=== PATIENT | female | born 1940 ===

== ENCOUNTER 2019-07-08 19:50 | Emergency (ER) | payer MEDICARE ==
--- NOTE | 2019-07-08 20:34 | Event Note ---
ED Screening Note ED Screening Note: htn with white recent med change tues pt was confused per family rx norvasc losartan water pill--since this losartan change pt has not felt well no cp no sob pcp ? pmh htn obese cva NO acs hpld prior smoker This initial assessment/diagnostic orders/clinical plan/treatment(s) is/are subject to change based on patients health status, clinical progression and re- assessment by fellow clinical providers in the ED. Further treatment and workup at subsequent clinical providers discretion. Patient/guardian urged not to elope from the ED as their condition may be serious if not clinically assessed and managed. Initial orders include: HTN Urgency/Emerg
[2019-07-08 20:53] LABS: Eosinophils # (Auto) 0.1 K/mm3 (0.0-0.4); Eosinophils % (Auto) 1.8 % (0.0-4.3); Hematocrit 34.1 % (30.3-42.9); Hemoglobin 11.5 gm/dl (10.1-14.3); Lymphocytes # (Auto) 1.2 K/mm3 (1.2-5.4); Mean Corpuscular HGB Conc 34 % (30-34); Mean Corpuscular Volume 92 fl (79-97); Monocytes # (Auto) 0.5 K/mm3 (0.0-0.8); Monocytes % (Auto) 11.6 % (0.0-7.3); Platelet Count 285 K/mm3 (140-440); Red Blood Count 3.69 M/mm3 (3.65-5.03); Red Cell Distribution Width 12.4 % (13.2-15.2)
--- NOTE | 2019-07-08 21:16 | XRay Report ---
CHEST 2 VIEWS INDICATION / CLINICAL INFORMATION: htn. COMPARISON: None available. FINDINGS: SUPPORT DEVICES: None. HEART / MEDIASTINUM: No significant abnormality. LUNGS / PLEURA: No significant pulmonary or pleural abnormality. No pneumothorax. ADDITIONAL FINDINGS: No significant additional findings. IMPRESSION: 1. No acute findings. Signer Name: Jericho Hardy MD Signed: 07/08/2019 9:12 PM Workstation Name: [id number]
[2019-07-08 21:17] LABS: Albumin 3.1 g/dL (3.9-5); Calcium 9.7 mg/dL (8.4-10.2)
[2019-07-08] MEDS ORDERED: SODIUM CHLORIDE 0.9% 1000 ML 1,000 ML IV ONE (21:52)
--- NOTE | 2019-07-08 22:23 | Emergency Department Report ---
ED General Adult HPI - General Chief complaint: High BP Stated complaint: POSS HIGH BP Time Seen by Provider: 07/08/19 20:33 Source: patient, family Mode of arrival: Ambulatory Limitations: No Limitations - History of Present Illness Initial comments: Patient is a 79-year-old female presents emergency room with complaints of elevated blood pressure. She states for the last 2 days she has had a headache and occasional blurry vision and generalized weakness. She denies any vision changes currently. She states that she just has a mild headache currently. The patient's daughter states that she took her blood pressure today and it was 207/110 at home. The patient states that 2 weeks ago she had her blood pressure medication change. She is to take losartan and amlodipine. She states that they changed her losartan to a combination of losartan and hydrochlorothiazide and she still takes amlodipine. She states since changing the medication she is not felt very well. She also has a past medical history of hyperlipidemia, CVA, breast cancer in 2015 - Related Data Previous Rx's Medication Instructions Recorded Last Taken Type Losartan [Cozaar] 25 mg PO QDAY #30 tablet 07/09/19 Unknown Rx amLODIPine 10 mg PO DAILY #30 tab 07/09/19 Unknown Rx Allergies Allergy/AdvReac Type Severity Reaction Status Date / Time Penicillins Allergy Hives Verified 07/08/19 20:38 ED Review of Systems ROS: Stated complaint: POSS HIGH BP Other details as noted in HPI Comment: All other systems reviewed and negative ED Past Medical Hx - Past Medical History Previous Medical History?: Yes Hx Hypertension: Yes Hx CVA: Yes - Surgical History Past Surgical History?: No - Social History Smoking Status: Former Smoker Substance Use Type: None - Medications Home Medications: Home Medications Medication Instructions Recorded Confirmed Last Taken Type Losartan [Cozaar] 25 mg PO QDAY #30 tablet 07/09/19 Unknown Rx amLODIPine 10 mg PO DAILY #30 tab 07/09/19 Unknown Rx ED Physical Exam - General Limitations: No Limitations General appearance: alert, in no apparent distress - Head Head exam: Present: atraumatic, normocephalic - Eye Eye exam: Present: normal appearance, PERRL, EOMI - ENT ENT exam: Present: mucous membranes moist - Respiratory Respiratory exam: Present: normal lung sounds bilaterally. Absent: respiratory distress, wheezes, rhonchi, stridor, chest wall tenderness, accessory muscle use, decreased breath sounds, prolonged expiratory - Cardiovascular Cardiovascular Exam: Present: regular rate, normal rhythm, normal heart sounds. Absent: systolic murmur, diastolic murmur, rubs, gallop - Neurological Exam Neurological exam: Present: alert, oriented X3, CN II-XII intact, normal gait, other (normal finger to nose, normal heel to samuels, no pronator drift, equal knife changer strength, 5/5 strength in the BUE/BLE, sensation intact throughout, no focal neuro deficit). Absent: motor sensory deficit - Psychiatric Psychiatric exam: Present: normal affect, normal mood - Skin Skin exam: Present: warm, dry, intact ED Course Vital Signs 07/08/19 07/08/19 07/08/19 19:59 21:27 21:28 Temperature 98.0 F Pulse Rate 104 H Respiratory 20 Rate Blood Pressure 228/106 Blood Pressure [Right] O2 Sat by Pulse 100 96 96 Oximetry 07/08/19 07/08/19 07/09/19 21:29 22:31 00:14 Temperature Pulse Rate 103 H 98 H Respiratory 15 Rate Blood Pressure 245/115 239/101 216/114 Blood Pressure [Right] O2 Sat by Pulse 99 94 Oximetry 07/09/19 07/09/19 00:37 01:18 Temperature Pulse Rate 90 85 Respiratory 18 18 Rate Blood Pressure Blood Pressure 246/76 197/80 [Right] O2 Sat by Pulse 99 99 Oximetry ED Medical Decision Making - Lab Data Result diagrams: 07/08/19 20:40 07/08/19 20:40 Lab Results 07/08/19 07/08/19 Range/Units 20:40 20:40 WBC 4.6 (4.5-11.0) K/mm3 RBC 3.69 (3.65-5.03) M/mm3 Hgb 11.5 (10.1-14.3) gm/dl Hct 34.1 (30.3-42.9) % MCV 92 (79-97) fl MCH 31 (28-32) pg MCHC 34 (30-34) % RDW 12.4 L (13.2-15.2) % Plt Count 285 (140-440) K/mm3 Lymph % (Auto) 26.0 (13.4-35.0) % Bucks % (Auto) 11.6 H (0.0-7.3) % Eos % (Auto) 1.8 (0.0-4.3) % Baso % (Auto) 1.0 (0.0-1.8) % Lymph # 1.2 (1.2-5.4) K/mm3 Bucks # 0.5 (0.0-0.8) K/mm3 Eos # 0.1 (0.0-0.4) K/mm3 Baso # 0.0 (0.0-0.1) K/mm3 Seg Neutrophils % 59.6 (40.0-70.0) % Seg Neutrophils # 2.7 (1.8-7.7) K/mm3 Sodium 139 (137-145) mmol/L Potassium 3.8 (3.6-5.0) mmol/L Chloride 98.5 (98-107) mmol/L Carbon Dioxide 24 (22-30) mmol/L Anion Gap 20 mmol/L BUN 21 H (7-17) mg/dL Creatinine 1.3 H (0.7-1.2) mg/dL Estimated GFR 40 ml/min BUN/Creatinine Ratio 16 % Glucose 92 (65-100) mg/dL Calcium 9.7 (8.4-10.2) mg/dL Total Bilirubin 0.30 (0.1-1.2) mg/dL AST 24 (5-40) units/L ALT 19 (7-56) units/L Alkaline Phosphatase 97 (35-129) units/L Troponin T 0.012 (0.00-0.029) ng/mL Total Protein 7.9 (6.3-8.2) g/dL Albumin 3.1 L (3.9-5) g/dL Albumin/Globulin Ratio 0.6 % - Radiology Data Radiology results: report reviewed CT head/brain wo con INDICATION / CLINICAL INFORMATION: headache, blurred vision, HTN. TECHNIQUE: All CT scans at this location are performed using CT dose reduction for ALARA by means of automated exposure control. COMPARISON: None available. FINDINGS: No acute intracranial hemorrhage. No evidence of abnormal extra-axial fluid collection. Extensive white matter hypodensity is consistent with small vessel chronic i schemic change. Involutional changes with the mild ventricular enlargement of cortical sulci bilaterally. No evidence of territorial infarction. No acute sinus disease. 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 IMPRESSION: 1. No acute intracranial findings. 2. Chronic involutional changes and small vessel white matter ischemia. Signer Name: Jericho Hardy MD Signed: 07/08/2019 10:37 PM Workstation Name: [id number] Transcribed By: WALLACE Dictated By: Jericho Hardy MD Electronically Authenticated By: Jericho Hardy MD Signed Date/Time: 07/08/192236 DD/ 33 TD/TT: CHEST 2 VIEWS INDICATION / CLINICAL INFORMATION: htn. COMPARISON: None available. FINDINGS: SUPPORT DEVICES: None. HEART / MEDIASTINUM: No significant abnormality. LUNGS / PLEURA: No significant pulmonary or pleural abnormality. No pne umothorax. ADDITIONAL FINDINGS: No significant additional findings. IMPRESSION: 1. No acute findings. Signer Name: Jericho Hardy MD Signed: 07/08/2019 9:12 PM Workstation Name: [id number] Transcribed By: WALLACE Dictated By: Jericho Hardy MD Electronically Authenticated By: Jericho Hardy MD Signed Date/Time: 07/08/192111 DD/ 10 TD/TT: - Medical Decision Making Patient is a 79-year-old female presents emergency room with complaints of elevated blood pressure. She states for the last 2 days she has had a headache and occasional blurry vision and generalized weakness. She denies any vision changes currently. She states that she just has a mild headache currently. The patient's daughter states that she took her blood pressure today and it was 207/110 at home. The patient states that 2 weeks ago she had her blood pressure medication change. She is to take losartan and amlodipine. She states that they changed her losartan to a combination of losartan and hydrochlorothiazide and she still takes amlodipine. She states since changing the medication she is not felt very well. She also has a past medical history of hyperlipidemia, CVA, breast cancer in 2015. vitals with elevated BP which improved after 1L NS and IV labetalol. CBC normal. CMP with Cr 1.3, BUN 21, no prior for comparison of kidney function. CT head: 1. No acute intracranial findings. 2. Chronic involutional changes and small vessel white matter ischemia. CXR:no acute findings. pt states after medications she is feeling much better, patient states that her headache has completely gone away, patient states that she is ready to go home. Will have patient stop the losartan hydrochlorothiazide combination pill. Will place patient on her amlodipine and losartan daily. advised pt to please take medication as prescribed. Please increase your water intake over the next several days. Keep a blood pressure log and take your blood pressure 3 times a day and take this to your primary care doctor. Eat a low-sodium diet. Follow up with a primary care doctor in the next 2-3 days. Return to the emergency room immediately for any new or worsening symptoms including but not limited to worsening headache, vision changes, numbness, weakness, vomiting, altered mental status, etc. Critical care attestation.: If time is entered above; I have spent that time in minutes in the direct care of this critically ill patient, excluding procedure time. ED Disposition Clinical Impression: Hypertensive urgency Headache Qualifiers: Headache type: unspecified Headache chronicity pattern: acute headache Intractability: not intractable Qualified Code(s): R51 - Headache Disposition: - TO HOME OR SELFCARE Is pt being admited?: No Does the pt Need Aspirin: No Condition: Stable Instructions: Hypertensive Crisis (ED) Additional Instructions: Please take medication as prescribed. Please increase your water intake over the next several days. Keep a blood pressure log and take your blood pressure 3 times a day and take this to your primary care doctor. Eat a low-sodium diet. Follow up with a primary care doctor in the next 2-3 days. Return to the emergency room immediately for any new or worsening symptoms including but not limited to worsening headache, vision changes, numbness, weakness, vomiting, altered mental status, etc. Prescriptions: amLODIPine 10 mg PO DAILY #30 tab Losartan [Cozaar] 25 mg PO QDAY #30 tablet Referrals: PRIMARY CAREMD [Primary Care Provider] - 2-3 Days Time of Disposition: 01:22 Print Language: CONGOLESE
--- NOTE | 2019-07-08 22:41 | Cat Scan Report ---
CT head/brain wo con INDICATION / CLINICAL INFORMATION: headache, blurred vision, HTN. TECHNIQUE: All CT scans at this location are performed using CT dose reduction for ALARA by means of automated e xposure control. COMPARISON: None available. FINDINGS: No acute intracranial hemorrhage. No evidence of abnormal extra-axial fluid collection. Extensive white matter hypodensity is consistent with small vessel chronic ischemic change. Involutional changes with the mild ventricular enlargement of cortical sulci bilaterally. No evidence of territorial infarction. No acute sinus disease. 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 IMPRESSION: 1. No acute intracranial findings. 2. Chronic involutional changes and small vessel white matter ischemia. Signer Name: Jericho Hardy MD Signed: 07/08/2019 10:37 PM Workstation Name: [id number]
[2019-07-09 01:19] VITALS: BP 197/80
== END 2019-07-09 02:09 | disposition home or self-care (01) ==
LOC: ED 19:50
DX: I16.0 Hypertensive urgency (principal); I10 Essential (primary) hypertension; R51 Headache; H53.8 Other visual disturbances; Z88.0 Allergy status to penicillin; Z87.891 Personal history of nicotine dependence; Z79.899 Other long term (current) drug therapy; Z86.73 Personal history of transient ischemic attack (TIA), and cerebral infarction without residual deficits
CPT/HCPCS: 36415; 70450; 71046; 80053; 84484; 85025; 93005; 93010; 96361; 96374; J7030